=== PATIENT | male | born 1980 | race Caucasian/White ===

== ENCOUNTER 2020-09-07 12:23 | Emergency (ER) | payer OTHER | END 2020-09-07 14:15 | disposition home or self-care (01) | LOC: FER 12:23 | DX: S91.301D Unspecified open wound, right foot, subsequent encounter (principal); E11.9 Type 2 diabetes mellitus without complications; I10 Essential (primary) hypertension; W45.0XXD Nail entering through skin, subsequent encounter | CPT/HCPCS: 73630 ==

== ENCOUNTER 2020-11-21 08:23 | Emergency (ER) | payer OTHER ==
[2020-11-21] MEDS ORDERED: DICLOFENAC SODI75 MG PO (08:51)
== END 2020-11-21 09:12 | disposition home or self-care (01) ==
LOC: FER 08:23
DX: S46.911A Strain of unspecified muscle, fascia and tendon at shoulder and upper arm level, right arm, initial encounter (principal); F17.210 Nicotine dependence, cigarettes, uncomplicated; X50.0XXA Overexertion from strenuous movement or load, initial encounter; Y93.89 Activity, other specified; Y92.096 Garden or yard of other non-institutional residence as the place of occurrence of the external cause
CPT/HCPCS: 99283